=== PATIENT | female | born 1985 | race Hispanic/Latino ===

== ENCOUNTER 2018-10-17 00:16 | Emergency (ER) | payer SELFPAY ==
[2018-10-17 01:12] LABS: BASOPHILS % (AUTO) 0.5 % (0.0-5.0); EOSINOPHILS % (AUTO) 1.3 % (0.0-8.0); HEMATOCRIT 33.9 % (36-48); LYMPHOCYTES % (AUTO) 30.3 % (21.0-51.0); MEAN CORPUSCULAR HEMOGLOBIN 25.3 pg (27.0-33.0); MEAN CORPUSCULAR HGB CONC 31.5 g/dL (32.0-36.0); MEAN CORPUSCULAR VOLUME 80.3 fL (79-99); MONOCYTES % (AUTO) 6.4 % (3.0-13.0); NEUTROPHILS % (AUTO) 61.5 % (40.0-77.0); PLATELET COUNT (AUTO) 376 K/uL (130-400); RED BLOOD CELL COUNT(AUTO) 4.23 MIL/uL (4.00-5.50); RED CELL DISTRIBUTION WIDTH 16.5 % (11.0-15.5)
[2018-10-17 01:13] LABS: APPEARANCE,URINE Cloudy (CLEAR); BILIRUBIN,URINE Negative (NEGATIVE); COLOR,URINE Yellow (YELLOW); GLUCOSE, URINE (UA) Negative (NEGATIVE); KETONES,URINE Negative (NEGATIVE); LEUKOCYTE ESTERASE ,URINE Negative (NEGATIVE); NITRATE,URINE Negative (NEGATIVE); OCCULT BLOOD,URINE Negative (NEGATIVE); PROTEIN,URINE Trace mg/dL (NEGATIVE)
[2018-10-17 01:15] LABS: HCG,QUAL RESULT NEGATIVE (NEGATIVE)
[2018-10-17] MEDS ORDERED: ONDANSETRON HCL 4 MG/2 ML VIAL ONE (01:17)
[2018-10-17] MEDS ORDERED: FAMOTIDINE/PF 20 MG/2 ML VIAL IV ONE (01:18)
[2018-10-17] MEDS ORDERED: SODIUM CHLORIDE 0.9% 1000ML 1,000 ML IV ONE (01:19)
[2018-10-17 01:21] LABS: CREATININE 0.8 mg/dL (0.5-1.5); POTASSIUM 3.5 mmol/L (3.5-5.1)
[2018-10-17 01:24] LABS: INR 0.99 (0.85-1.15); PARTIAL THROMBOPLASTIN TIME 28.9 SEC (26.3-35.5); PROTHROMBIN TIME 10.4 SEC (9.6-11.6)
[2018-10-17 01:25] LABS: ALBUMIN 3.6 g/dL (3.5-5.0); BILIRUBIN,TOTAL 0.4 mg/dL (0.2-1.0); TOTAL PROTEIN, SERUM 7.9 g/dL (6.0-8.3)
[2018-10-17 01:48] LABS: BACTERIA,URINE Few /HPF (None Seen); MUCUS,URINE Moderate LPF (None Seen); RBC,URINE 0-1 /HPF (0-1); WBC,URINE 0-1 /HPF (0-1)
== END 2018-10-17 02:22 | disposition home or self-care (01) ==
LOC: EDH 00:16
DX: R10.11 Right upper quadrant pain (principal); R11.2 Nausea with vomiting, unspecified; R19.7 Diarrhea, unspecified; J45.909 Unspecified asthma, uncomplicated
CPT/HCPCS: 36415; 74176; 80053; 81001; 81025; 82550; 83605; 83690; 85025; 85610; 85730; 96361; 96374; 96375; 99285; J2405; J3490; J7030

== ENCOUNTER → 2020-02-18 | Outpatient (CLI) | payer OTHER ==
[2020-02-18 12:32] LABS: BASOPHILS % (AUTO) 0.3 % (0.0-5.0); HEMATOCRIT 38.7 % (36-48); MEAN CORPUSCULAR HEMOGLOBIN 27.3 pg (27.0-33.0); MEAN CORPUSCULAR VOLUME 85.2 fL (79-99); MONOCYTES % (AUTO) 3.8 % (3.0-13.0); NEUTROPHILS % (AUTO) 92.3 % (40.0-77.0); PLATELET COUNT (AUTO) 321 K/uL (130-400); RED BLOOD CELL COUNT(AUTO) 4.54 MIL/uL (4.00-5.50); RED CELL DISTRIBUTION WIDTH 15.2 % (11.0-15.5); WHITE BLOOD COUNT (AUTO) 26.1 K/uL (4.8-10.8)
[2020-02-18 12:46] LABS: HEMOGLOBIN A1C 6.1 % (4.0-6.0)
[2020-02-18 13:00] LABS: ALBUMIN 3.6 g/dL (3.5-5.0); CREATININE 0.9 mg/dL (0.5-1.5); POTASSIUM 3.9 mmol/L (3.5-5.1); THYROID STIMULATING HORMONE 0.96 uIU/mL (0.36-3.74); TOTAL PROTEIN, SERUM 7.9 g/dL (6.0-8.3)
== END | disposition home or self-care (01) ==
LOC: LAB 11:46
PROVIDERS: ATTEND Family Medicine
DX: M79.604 Pain in right leg (principal); L03.90 Cellulitis, unspecified; M79.89 Other specified soft tissue disorders
CPT/HCPCS: 36415; 80053; 80061; 83036; 84443; 85025

== ENCOUNTER → 2020-02-21 | Outpatient (CLI) | payer OTHER | END | disposition home or self-care (01) | LOC: RAH 14:58 | PROVIDERS: ATTEND Family Medicine | DX: L03.115 Cellulitis of right lower limb (principal); M79.604 Pain in right leg; M79.89 Other specified soft tissue disorders | CPT/HCPCS: 93971 ==

== ENCOUNTER → 2020-06-21 | Outpatient (CLI) | payer OTHER ==
[2020-06-21 12:49] LABS: BASOPHILS % (AUTO) 0.7 % (0.0-5.0); EOSINOPHILS % (AUTO) 3.1 % (0.0-8.0); HEMATOCRIT 41.5 % (36-48); LYMPHOCYTES % (AUTO) 24.6 % (21.0-51.0); MEAN CORPUSCULAR HEMOGLOBIN 27.3 pg (27.0-33.0); MEAN CORPUSCULAR HGB CONC 31.8 g/dL (32.0-36.0); MEAN CORPUSCULAR VOLUME 85.7 fL (79-99); MONOCYTES % (AUTO) 5.7 % (3.0-13.0); NEUTROPHILS % (AUTO) 65.5 % (40.0-77.0); PLATELET COUNT (AUTO) 380 K/uL (130-400); RED BLOOD CELL COUNT(AUTO) 4.84 MIL/uL (4.00-5.50); RED CELL DISTRIBUTION WIDTH 13.9 % (11.0-15.5); WHITE BLOOD COUNT (AUTO) 9.9 K/uL (4.8-10.8)
[2020-06-21 12:50] LABS: APPEARANCE,URINE Clear (CLEAR); BILIRUBIN,URINE Negative (NEGATIVE); COLOR,URINE Yellow (YELLOW); GLUCOSE, URINE (UA) Negative (NEGATIVE); KETONES,URINE Negative (NEGATIVE); LEUKOCYTE ESTERASE ,URINE Trace (NEGATIVE); NITRATE,URINE Negative (NEGATIVE); OCCULT BLOOD,URINE Negative (NEGATIVE); PH,URINE 5.5 (5.0-8.0); PROTEIN,URINE POS 1+ mg/dL (NEGATIVE)
[2020-06-21 12:57] LABS: HEMOGLOBIN A1C 6.3 % (4.0-6.0)
[2020-06-21 13:14] LABS: ALBUMIN 3.7 g/dL (3.5-5.0); BILIRUBIN,TOTAL 0.5 mg/dL (0.2-1.0); CREATININE 0.8 mg/dL (0.5-1.5); POTASSIUM 4.3 mmol/L (3.5-5.1); THYROID STIMULATING HORMONE 2.27 uIU/mL (0.36-3.74)
[2020-06-21 13:32] LABS: RBC,URINE 0-1 /HPF (0-1)
[2020-06-21 13:33] LABS: BACTERIA,URINE Few /HPF (None Seen); SQUAMOUS EPITHELIAL CELL,UR Moderate /HPF (0-2)
== END | disposition home or self-care (01) ==
LOC: LAB 12:02
PROVIDERS: ATTEND Family Medicine
DX: Z00.00 Encounter for general adult medical examination without abnormal findings (principal)
CPT/HCPCS: 36415; 80053; 80061; 81001; 82043; 83036; 84443; 85025

== ENCOUNTER 2020-08-07 18:08 | Emergency (ER) | payer OTHER ==
[~2020-08-07] VITALS: Ht 154.9 cm; Wt 113.4 kg
[2020-08-07 19:27] VITALS: BP 128/60
[2020-08-07 19:32] LABS: BASOPHILS % (AUTO) 0.3 % (0.0-5.0); EOSINOPHILS % (AUTO) 0.8 % (0.0-8.0); HEMATOCRIT 39.8 % (36-48); LYMPHOCYTES % (AUTO) 6.7 % (21.0-51.0); MEAN CORPUSCULAR HEMOGLOBIN 28.4 pg (27.0-33.0); MEAN CORPUSCULAR HGB CONC 32.7 g/dL (32.0-36.0); MEAN CORPUSCULAR VOLUME 86.9 fL (79-99); MONOCYTES % (AUTO) 4.2 % (3.0-13.0); NEUTROPHILS % (AUTO) 87.4 % (40.0-77.0); PLATELET COUNT (AUTO) 343 K/uL (130-400); RED BLOOD CELL COUNT(AUTO) 4.58 MIL/uL (4.00-5.50); RED CELL DISTRIBUTION WIDTH 14.5 % (11.0-15.5); WHITE BLOOD COUNT (AUTO) 23.4 K/uL (4.8-10.8)
[2020-08-07 19:43] LABS: CREATININE 0.9 mg/dL (0.5-1.5); POTASSIUM 3.7 mmol/L (3.5-5.1)
[2020-08-07 19:47] LABS: ALBUMIN 3.6 g/dL (3.5-5.0); BILIRUBIN,TOTAL 0.4 mg/dL (0.2-1.0); TOTAL PROTEIN, SERUM 8.2 g/dL (6.0-8.3)
[2020-08-07] MEDS ORDERED: PANTOPRAZOLE 40 MG/VIAL IVP ONE (20:00)
[2020-08-07] MEDS ORDERED: FAMOTIDINE 20MG VIAL IV ONE (20:00)
[2020-08-07] MEDS ORDERED: ONDANSETRON 4MG INJ IVP ONE (20:00)
[2020-08-07] MEDS ORDERED: [UNRECOGNIZED DRUG - OTHER] IV ONE (20:00)
[2020-08-07] MEDS ORDERED: PROCHLORPERAZINE EDISYLATE 10 MG/2 ML VIAL IVP ONE (20:00)
[2020-08-07] MEDS ORDERED: NACL 0.9% 1000ML 1,000 ML IV ONE ×2 (20:00→20:03)
[2020-08-07 21:10] LABS: APPEARANCE,URINE Clear (CLEAR); BILIRUBIN,URINE Negative (NEGATIVE); COLOR,URINE Yellow (YELLOW); GLUCOSE, URINE (UA) Negative (NEGATIVE); KETONES,URINE Negative (NEGATIVE); LEUKOCYTE ESTERASE ,URINE Negative (NEGATIVE); NITRATE,URINE Negative (NEGATIVE); OCCULT BLOOD,URINE Large (NEGATIVE); PH,URINE 5.5 (5.0-8.0); PROTEIN,URINE Trace mg/dL (NEGATIVE)
[2020-08-07 21:12] LABS: HCG,QUAL RESULT NEGATIVE (NEGATIVE)
[2020-08-07 21:15] LABS: WBC,URINE 0-1 /HPF (0-1)
[2020-08-07 21:16] LABS: BACTERIA,URINE Rare /HPF (None Seen); RBC,URINE 26-50 /HPF (0-1); SQUAMOUS EPITHELIAL CELL,UR Rare /HPF (0-2)
[2020-08-07] MEDS ORDERED: IOHEXOL 350 MG/ML 100ML INFUS..BTL IV ONE (21:29)
[2020-08-07 22:39] VITALS: BP 133/88
[2020-08-07 23:37] LABS: BASOPHILS % (AUTO) 0.3 % (0.0-5.0); EOSINOPHILS % (AUTO) 0.8 % (0.0-8.0); HEMATOCRIT 36.1 % (36-48); LYMPHOCYTES % (AUTO) 10.3 % (21.0-51.0); MEAN CORPUSCULAR HEMOGLOBIN 27.8 pg (27.0-33.0); MEAN CORPUSCULAR HGB CONC 32.1 g/dL (32.0-36.0); MEAN CORPUSCULAR VOLUME 86.6 fL (79-99); NEUTROPHILS % (AUTO) 84.1 % (40.0-77.0); PLATELET COUNT (AUTO) 307 K/uL (130-400); RED BLOOD CELL COUNT(AUTO) 4.17 MIL/uL (4.00-5.50); RED CELL DISTRIBUTION WIDTH 14.5 % (11.0-15.5); WHITE BLOOD COUNT (AUTO) 21.6 K/uL (4.8-10.8)
[2020-08-07] MEDS ORDERED: KETOROLAC 30MG VIAL (30MG/ML) IV SCH (23:45)
[2020-08-07] MEDS ORDERED: PANT40TA PO (23:50)
[2020-08-07] MEDS ORDERED: METO10TA41 PO (23:50)
[2020-08-07] MEDS ORDERED: ONDA4TAB10 PO (23:50)
[2020-08-07] MEDS ORDERED: DICY20TA2 PO (23:50)
== END 2020-08-08 00:35 | disposition home or self-care (01) ==
LOC: EDH 18:08
DX: K29.70 Gastritis, unspecified, without bleeding (principal); E86.0 Dehydration; D72.829 Elevated white blood cell count, unspecified; R11.10 Vomiting, unspecified; Z79.899 Other long term (current) drug therapy
CPT/HCPCS: 36415; 74177; 80053; 81001; 81025; 83690; 85025 ×2; 96361; 96374; 96375 ×2; 99285; C9113; J0780; J1885; J2405; J3490; J7030; Q9967

== ENCOUNTER 2020-10-05 01:37 | Emergency (ER) | payer OTHER ==
[~2020-10-05] VITALS: Ht 154.9 cm; Wt 113.4 kg
[~2020-10-05 01:37] MED LIST: DICY20TA2 PO; METO10TA41 PO; ONDA4TAB10 PO; PANT40TA PO
[2020-10-05 03:05] VITALS: BP 134/68
[2020-10-05 03:06] VITALS: BP 134/68
[2020-10-05] MEDS ORDERED: TETANUS/DIPHTHERIA TOXOID [ADULT] 0.5 ML VIAL IM ONE (06:00)
[2020-10-05] MEDS ORDERED: CIPR-278 PO (06:05)
== END 2020-10-05 06:36 | disposition home or self-care (01) ==
LOC: EDH 01:37
DX: S91.332A Puncture wound without foreign body, left foot, initial encounter (principal); J45.909 Unspecified asthma, uncomplicated; Z79.899 Other long term (current) drug therapy; W45.0XXA Nail entering through skin, initial encounter; Y93.01 Activity, walking, marching and hiking; Y92.89 Other specified places as the place of occurrence of the external cause; Y99.8 Other external cause status
CPT/HCPCS: 73630; 90471; 90714

== ENCOUNTER → 2021-08-06 | Outpatient (CLI) | payer OTHER ==
[~2021-08-06] MED LIST changes: +CIPR-278 PO
[2021-08-06 08:03] LABS: BASOPHILS % (AUTO) 0.5 % (0.0-5.0); EOSINOPHILS % (AUTO) 0.7 % (0.0-8.0); HEMATOCRIT 39.4 % (36-48); LYMPHOCYTES % (AUTO) 27.6 % (21.0-51.0); MEAN CORPUSCULAR HEMOGLOBIN 28.8 pg (27.0-33.0); MEAN CORPUSCULAR HGB CONC 33.8 g/dL (32.0-36.0); MEAN CORPUSCULAR VOLUME 85.3 fL (79-99); MONOCYTES % (AUTO) 6.5 % (3.0-13.0); NEUTROPHILS % (AUTO) 64.2 % (40.0-77.0); PLATELET COUNT (AUTO) 338 K/uL (130-400); RED BLOOD CELL COUNT(AUTO) 4.62 MIL/uL (4.00-5.50); RED CELL DISTRIBUTION WIDTH 14.6 % (11.0-15.5); WHITE BLOOD COUNT (AUTO) 15.3 K/uL (4.8-10.8)
[2021-08-06 08:13] LABS: HEMOGLOBIN A1C 7.5 % (4.0-6.0)
[2021-08-06 08:47] LABS: ALBUMIN 3.3 g/dL (3.5-5.0); BILIRUBIN,TOTAL 0.2 mg/dL (0.2-1.0); POTASSIUM 3.8 mmol/L (3.5-5.1); THYROID STIMULATING HORMONE 3.84 uIU/mL (0.36-3.74); TOTAL PROTEIN, SERUM 7.1 g/dL (6.0-8.3); URIC ACID 5.2 mg/dL (2.6-7.2)
== END | disposition home or self-care (01) ==
LOC: LAB 07:52
PROVIDERS: ATTEND Family Medicine
DX: M25.473 Effusion, unspecified ankle (principal); Z68.43 Body mass index [BMI] 50.0-59.9, adult; E66.01 Morbid (severe) obesity due to excess calories; Z83.3 Family history of diabetes mellitus
CPT/HCPCS: 36415; 80053; 80061; 83036; 84443; 84550; 85025

== ENCOUNTER → 2021-11-13 | Outpatient (CLI) | payer OTHER ==
[2021-11-13 08:18] LABS: APPEARANCE,URINE CLEAR (CLEAR); BILIRUBIN,URINE MODERATE mg/dL (NEGATIVE); COLOR,URINE YELLOW (YELLOW); GLUCOSE, URINE (UA) NEGATIVE (NEGATIVE); KETONES,URINE >=80 mg/dL (NEGATIVE); LEUKOCYTE ESTERASE ,URINE NEGATIVE Leu/uL (NEGATIVE); NITRATE,URINE NEGATIVE (NEGATIVE); OCCULT BLOOD,URINE NEGATIVE (NEGATIVE); PROTEIN,URINE TRACE mg/dL (NEGATIVE); UROBILINOGEN,URINE 0.2 mg/dL (0.2-1.0)
[2021-11-13 08:20] LABS: BASOPHILS % (AUTO) 0.6 % (0.0-5.0); EOSINOPHILS % (AUTO) 1.6 % (0.0-8.0); HEMATOCRIT 41.1 % (36-48); LYMPHOCYTES % (AUTO) 21.8 % (21.0-51.0); MEAN CORPUSCULAR HEMOGLOBIN 27.9 pg (27.0-33.0); MEAN CORPUSCULAR HGB CONC 32.4 g/dL (32.0-36.0); MEAN CORPUSCULAR VOLUME 86.2 fL (79-99); MONOCYTES % (AUTO) 5.8 % (3.0-13.0); NEUTROPHILS % (AUTO) 69.8 % (40.0-77.0); PLATELET COUNT (AUTO) 396 K/uL (130-400); RED BLOOD CELL COUNT(AUTO) 4.77 MIL/uL (4.00-5.50); RED CELL DISTRIBUTION WIDTH 14.1 % (11.0-15.5); WHITE BLOOD COUNT (AUTO) 11.5 K/uL (4.8-10.8)
[2021-11-13 08:34] LABS: HEMOGLOBIN A1C 9.5 % (4.0-6.0)
[2021-11-13 08:35] LABS: BACTERIA,URINE None Seen /HPF (None Seen); RBC,URINE R /HPF (0-1); SQUAMOUS EPITHELIAL CELL,UR Rare /HPF (0-2); WBC,URINE R /HPF (0-1)
[2021-11-13 08:43] LABS: ALBUMIN 3.5 g/dL (3.5-5.0); CREATININE 0.8 mg/dL (0.5-1.5); POTASSIUM 3.3 mmol/L (3.5-5.1); THYROID STIMULATING HORMONE 0.97 uIU/mL (0.36-3.74); TOTAL PROTEIN, SERUM 7.9 g/dL (6.0-8.3)
== END | disposition home or self-care (01) ==
LOC: LAB 07:29
PROVIDERS: ATTEND Family Medicine
DX: R51.9 Headache, unspecified (principal); H57.11 Ocular pain, right eye; Z82.49 Family history of ischemic heart disease and other diseases of the circulatory system; Z68.43 Body mass index [BMI] 50.0-59.9, adult
CPT/HCPCS: 36415; 80053; 80061; 81001; 82150; 83036; 83690; 84439; 84443; 84481; 85025

== ENCOUNTER → 2022-05-24 | Outpatient (CLI) | payer OTHER ==
[2022-05-24 11:08] LABS: BASOPHILS % (AUTO) 0.6 % (0.0-5.0); EOSINOPHILS % (AUTO) 1.3 % (0.0-8.0); HEMATOCRIT 40.2 % (36-48); LYMPHOCYTES % (AUTO) 30.3 % (21.0-51.0); MEAN CORPUSCULAR HEMOGLOBIN 29.5 pg (27.0-33.0); MEAN CORPUSCULAR HGB CONC 32.3 g/dL (32.0-36.0); MEAN CORPUSCULAR VOLUME 91.4 fL (79-99); MONOCYTES % (AUTO) 5.8 % (3.0-13.0); NEUTROPHILS % (AUTO) 61.9 % (40.0-77.0); PLATELET COUNT (AUTO) 305 K/uL (130-400); RED CELL DISTRIBUTION WIDTH 13.6 % (11.0-15.5); WHITE BLOOD COUNT (AUTO) 6.9 K/uL (4.8-10.8)
[2022-05-24 11:13] LABS: HEMOGLOBIN A1C 5.2 % (4.0-6.0)
[2022-05-24 11:23] LABS: ALBUMIN 3.6 g/dL (3.5-5.0); CREATININE 0.6 mg/dL (0.5-1.5); POTASSIUM 3.8 mmol/L (3.5-5.1); THYROID STIMULATING HORMONE 0.86 uIU/mL (0.36-3.74); TOTAL PROTEIN, SERUM 7.2 g/dL (6.0-8.3)
== END | disposition home or self-care (01) ==
LOC: LAB 10:11
PROVIDERS: ATTEND Family Medicine
DX: Z76.0 Encounter for issue of repeat prescription (principal); E11.9 Type 2 diabetes mellitus without complications; Z83.3 Family history of diabetes mellitus; Z82.49 Family history of ischemic heart disease and other diseases of the circulatory system
CPT/HCPCS: 36415; 80053; 80061; 82043; 82306; 83036; 84443; 85025

== ENCOUNTER 2022-06-30 21:50 | Emergency (ER) | payer OTHER ==
[~2022-06-30] VITALS: Ht 154.9 cm; Wt 80.3 kg
[2022-06-30] MEDS ORDERED: CLINDAMYCIN IVPB 600MG/50ML 50 ML IV SCH (22:30)
[2022-06-30 22:48] LABS: BASOPHILS % (AUTO) 0.5 % (0.0-5.0); EOSINOPHILS % (AUTO) 0.9 % (0.0-8.0); LYMPHOCYTES % (AUTO) 39.6 % (21.0-51.0); MEAN CORPUSCULAR HEMOGLOBIN 30.3 pg (27.0-33.0); MEAN CORPUSCULAR HGB CONC 33.9 g/dL (32.0-36.0); MEAN CORPUSCULAR VOLUME 89.5 fL (79-99); MONOCYTES % (AUTO) 5.5 % (3.0-13.0); NEUTROPHILS % (AUTO) 53.3 % (40.0-77.0); PLATELET COUNT (AUTO) 308 K/uL (130-400); RED BLOOD CELL COUNT(AUTO) 4.58 MIL/uL (4.00-5.50); RED CELL DISTRIBUTION WIDTH 13.6 % (11.0-15.5); WHITE BLOOD COUNT (AUTO) 9.9 K/uL (4.8-10.8)
[2022-06-30] MEDS ORDERED: CLIN-141 PO (22:57)
[2022-06-30 23:00] LABS: CREATININE 0.6 mg/dL (0.5-1.5); POTASSIUM 3.7 mmol/L (3.5-5.1)
[2022-06-30 23:05] LABS: ALBUMIN 3.9 g/dL (3.5-5.0); TOTAL PROTEIN, SERUM 7.6 g/dL (6.0-8.3)
[2022-07-01 00:16] VITALS: BP 118/68
== END 2022-07-01 00:19 | disposition home or self-care (01) ==
LOC: EDH 21:50
DX: S61.442A Puncture wound with foreign body of left hand, initial encounter (principal); L03.114 Cellulitis of left upper limb; Z79.899 Other long term (current) drug therapy; X58.XXXA Exposure to other specified factors, initial encounter; Y93.89 Activity, other specified; Y92.89 Other specified places as the place of occurrence of the external cause; Y99.8 Other external cause status
CPT/HCPCS: 99284; 96365; 80053; 85025; 36415; 73130; J3490

== ENCOUNTER → 2022-09-12 | Outpatient (CLI) | payer OTHER ==
[~2022-09-12] MED LIST changes: +CLIN-141 PO
[2022-09-12 10:45] LABS: BASOPHILS % (AUTO) 0.8 % (0.0-5.0); EOSINOPHILS % (AUTO) 2.9 % (0.0-8.0); HEMATOCRIT 41.9 % (36-48); MEAN CORPUSCULAR HEMOGLOBIN 31.2 pg (27.0-33.0); MEAN CORPUSCULAR HGB CONC 32.7 g/dL (32.0-36.0); MEAN CORPUSCULAR VOLUME 95.4 fL (79-99); MONOCYTES % (AUTO) 5.2 % (3.0-13.0); NEUTROPHILS % (AUTO) 68.7 % (40.0-77.0); PLATELET COUNT (AUTO) 273 K/uL (130-400); RED BLOOD CELL COUNT(AUTO) 4.39 MIL/uL (4.00-5.50); RED CELL DISTRIBUTION WIDTH 13.2 % (11.0-15.5); WHITE BLOOD COUNT (AUTO) 7.4 K/uL (4.8-10.8)
[2022-09-12 10:48] LABS: APPEARANCE,URINE CLEAR (CLEAR); BILIRUBIN,URINE NEGATIVE (NEGATIVE); COLOR,URINE LIGHT-YELLOW (YELLOW); GLUCOSE, URINE (UA) NEGATIVE (NEGATIVE); KETONES,URINE NEGATIVE (NEGATIVE); LEUKOCYTE ESTERASE ,URINE 250 Leu/uL (NEGATIVE); NITRATE,URINE NEGATIVE (NEGATIVE); OCCULT BLOOD,URINE NEGATIVE (NEGATIVE); PH,URINE 6.5 (5.0-8.0); PROTEIN,URINE NEGATIVE (NEGATIVE); UROBILINOGEN,URINE 0.2 mg/dL (0.2-1.0)
[2022-09-12 10:53] LABS: HEMOGLOBIN A1C 4.8 % (4.0-6.0)
[2022-09-12 10:55] LABS: MUCUS,URINE RARE LPF (None Seen); SQUAMOUS EPITHELIAL CELL,UR FEW /HPF (0-2)
[2022-09-12 11:10] LABS: ALBUMIN 3.4 g/dL (3.5-5.0); CREATININE 0.6 mg/dL (0.5-1.5); POTASSIUM 3.7 mmol/L (3.5-5.1); THYROID STIMULATING HORMONE 0.67 uIU/mL (0.36-3.74); TOTAL PROTEIN, SERUM 6.9 g/dL (6.0-8.3)
== END | disposition home or self-care (01) ==
LOC: LAB 09:37
PROVIDERS: ATTEND Family Medicine
DX: E11.65 Type 2 diabetes mellitus with hyperglycemia (principal); R10.9 Unspecified abdominal pain
CPT/HCPCS: 36415; 80053; 80061; 81001; 82043; 82150; 82570; 83036; 83690; 84443; 85025; 87088

== ENCOUNTER → 2022-09-20 | Outpatient (CLI) | payer OTHER | END | disposition home or self-care (01) | LOC: RAH 09:38 | PROVIDERS: ATTEND Family Medicine | DX: K76.0 Fatty (change of) liver, not elsewhere classified (principal); R10.9 Unspecified abdominal pain; R16.0 Hepatomegaly, not elsewhere classified | CPT/HCPCS: 76700 ==

== ENCOUNTER 2022-10-29 09:16 | Day surgery (SDC) | payer OTHER ==
[~2022-10-29] VITALS: Ht 154.9 cm; Wt 78.5 kg
[~2022-10-29 09:16] MED LIST changes: +BUDE10.7 IH; +CETI-89 PO; -CIPR-278 PO; -CLIN-141 PO; -DICY20TA2 PO; +LISI2.5T13 PO; -METO10TA41 PO; -ONDA4TAB10 PO; -PANT40TA PO; +PRAV20TA4 PO; +TIRZ5PEN SQ
[2022-10-29 11:08] VITALS: BP 124/77; PULSE 70; RESP 16
[2022-10-29] MEDS ORDERED: PROPOFOL 10 MG/ML 20ML VIAL IV ONE ×2 (13:14→13:15)
== END 2022-10-29 14:05 ==
LOC: ENDO 09:16 → DAH 09:16 → ENDO 14:05
PROVIDERS: ATTEND Internal Medicine Gastroenterology
DX: R10.12 Left upper quadrant pain (principal); K29.70 Gastritis, unspecified, without bleeding; B96.81 Helicobacter pylori [H. pylori] as the cause of diseases classified elsewhere; K31.89 Other diseases of stomach and duodenum; E11.9 Type 2 diabetes mellitus without complications; E78.00 Pure hypercholesterolemia, unspecified; Z79.899 Other long term (current) drug therapy; Z72.89 Other problems related to lifestyle; Z98.890 Other specified postprocedural states
CPT/HCPCS: 82948; 81025; 43239; J2704 ×2; A4620; A4215 ×2; A7002; A4222; A4221; A4663; J7030; A4606; J3490

== ENCOUNTER → 2023-01-01 | Outpatient (CLI) | payer OTHER | END | disposition home or self-care (01) | LOC: LAB 12-31 12:20 | PROVIDERS: ATTEND Internal Medicine Gastroenterology | DX: R10.12 Left upper quadrant pain (principal); B96.81 Helicobacter pylori [H. pylori] as the cause of diseases classified elsewhere | CPT/HCPCS: 83013 ==

== ENCOUNTER 2023-01-13 19:34 | Inpatient (IN) | payer OTHER ==
[~2023-01-13] VITALS: Ht 154.9 cm; Wt 84.1 kg
[2023-01-13 19:59] VITALS: TEMP 100
[2023-01-13] MEDS ORDERED: ACETAMINOPHEN 500 MG TABLET PO ONE (20:00)
[2023-01-13] MEDS ORDERED: 0.9%NACL 1000ML 1,000 ML IV ONE (22:00)
[2023-01-13] MEDS ORDERED: CEFTRIAXONE 1G VIAL IVPB ONE (22:00)
[2023-01-13 22:12] LABS: BASOPHILS # (AUTO) 0.08 K/uL (0.00-0.20); BASOPHILS % (AUTO) 0.5 % (0.0-5.0); EOSINOPHILS # (AUTO) 0.14 K/uL (0.00-0.70); EOSINOPHILS % (AUTO) 0.9 % (0.0-8.0); HEMATOCRIT 36.2 % (36-48); IMMATURE GRANULOCYTE ABSOLUTE 0.07 K/uL (0-1); LYMPHOCYTES # (AUTO) 2.2 K/uL (1.0-4.8); LYMPHOCYTES % (AUTO) 13.9 % (21.0-51.0); MEAN CORPUSCULAR HGB CONC 33.7 g/dL (32.0-36.0); MONOCYTES # (AUTO) 1.2 K/uL (0.1-1.0); MONOCYTES % (AUTO) 7.4 % (3.0-13.0); NEUTROPHILS # (AUTO) 12.4 K/uL (1.8-7.7); NEUTROPHILS % (AUTO) 76.9 % (40.0-77.0); PLATELET COUNT (AUTO) 291 K/uL (130-400); RED BLOOD CELL COUNT(AUTO) 3.81 MIL/uL (4.00-5.50); WHITE BLOOD COUNT (AUTO) 16.1 K/uL (4.8-10.8)
[2023-01-13 22:13] LABS: ADD UA MICROSCOPIC YES; APPEARANCE,URINE CLEAR (CLEAR); BILIRUBIN,URINE NEGATIVE (NEGATIVE); COLOR,URINE YELLOW (YELLOW); GLUCOSE, URINE (UA) NEGATIVE (NEGATIVE); KETONES,URINE NEGATIVE (NEGATIVE); LEUKOCYTE ESTERASE ,URINE NEGATIVE Leu/uL (NEGATIVE); NITRATE,URINE NEGATIVE (NEGATIVE); OCCULT BLOOD,URINE NEGATIVE (NEGATIVE); PH,URINE 5.5 (5.0-8.0); PROTEIN,URINE 10 mg/dL (NEGATIVE); UROBILINOGEN,URINE 0.2 mg/dL (0.2-1.0)
[2023-01-13 22:15] LABS: BACTERIA,URINE RARE /HPF (None Seen); RBC,URINE 0-1 /HPF (0-1); SQUAMOUS EPITHELIAL CELL,UR FEW /HPF (0-2); YEAST,URINE BUDDING RARE /HPF (None Seen)
[2023-01-13 22:16] LABS: HCG,QUALITATIVE URINE NEGATIVE (NEGATIVE)
[2023-01-13 22:38] LABS: CREATININE 0.7 mg/dL (0.5-1.5); POTASSIUM 3.6 mmol/L (3.5-5.1)
[2023-01-13] MEDS ORDERED: IOHEXOL 350 MG/ML 100ML INFUS..BTL IV ONE (22:41)
[2023-01-14] VITALS (26 sets, daily range): BP systolic 90–120; BP diastolic 48–78; PULSE 69–93; RESP 14–18; O2SAT 99
[2023-01-14] MEDS ORDERED: PRAV20TA4 PO (00:33)
[2023-01-14] MEDS ORDERED: POLY17PO4 PO (00:33)
[2023-01-14] MEDS ORDERED: CETI-89 PO (00:33)
[2023-01-14] MEDS ORDERED: LISI2.5T13 PO (00:33)
[2023-01-14] MEDS ORDERED: TIRZ5PEN SQ (00:33)
[2023-01-14] MEDS ORDERED: MORPHINE 4 MG SYG IV PRN (01:30)
[2023-01-14] MEDS ORDERED: ACETAMINOPHEN 650 MG SUPPOSITORY RC PRN (01:30)
[2023-01-14] MEDS ORDERED: POTASSIUM CHLORIDE 20MEQ/100ML 100 ML IV PRN ×2 (01:30)
[2023-01-14] MEDS ORDERED: MAGNESIUM 2GM PREMIX 50ML 50 ML IV PRN (01:30)
[2023-01-14] MEDS ORDERED: KCL 20 MEQ ERTAB PO PRN (01:30)
[2023-01-14] MEDS ORDERED: VANCOMYCIN PROTOCOL PER PHARMACY IV PRN (01:30)
[2023-01-14] MEDS ORDERED: MORPHINE 2 MG SYG IV PRN (01:30)
[2023-01-14] MEDS ORDERED: VANCOMYCIN 1G/250ML KIT 250 ML IV ONE ×2 (01:30→09:26)
[2023-01-14] MEDS ORDERED: POTASSIUM CHLORIDE 10% ELIXIR 20 MEQ/15 ML UDCUP PO PRN (01:30)
[2023-01-14] MEDS ORDERED: ONDANSETRON 4MG INJ IV PRN (01:30)
[2023-01-14] MEDS: LACTATED RINGERS 1000ML 1,000 ML IV SCH ×2 (01:39→14:50)
[2023-01-14 01:43] LABS: BASOPHILS # (AUTO) 0.05 K/uL (0.00-0.20); BASOPHILS % (AUTO) 0.3 % (0.0-5.0); EOSINOPHILS # (AUTO) 0.13 K/uL (0.00-0.70); EOSINOPHILS % (AUTO) 0.9 % (0.0-8.0); HEMATOCRIT 37.9 % (36-48); IMMATURE GRANULOCYTE ABSOLUTE 0.05 K/uL (0-1); LYMPHOCYTES # (AUTO) 2.2 K/uL (1.0-4.8); LYMPHOCYTES % (AUTO) 15.1 % (21.0-51.0); MEAN CORPUSCULAR HEMOGLOBIN 31.7 pg (27.0-33.0); MEAN CORPUSCULAR VOLUME 96.2 fL (79-99); MONOCYTES # (AUTO) 1.1 K/uL (0.1-1.0); MONOCYTES % (AUTO) 7.5 % (3.0-13.0); NEUTROPHILS # (AUTO) 11.1 K/uL (1.8-7.7); NEUTROPHILS % (AUTO) 75.9 % (40.0-77.0); PLATELET COUNT (AUTO) 280 K/uL (130-400); RED BLOOD CELL COUNT(AUTO) 3.94 MIL/uL (4.00-5.50); WHITE BLOOD COUNT (AUTO) 14.6 K/uL (4.8-10.8)
[2023-01-14 01:51] LABS: CREATININE 0.6 mg/dL (0.5-1.5); MAGNESIUM 1.9 mg/dL (1.80-2.40); PHOSPHORUS 3.2 mg/dL (2.5-4.9); POTASSIUM 3.7 mmol/L (3.5-5.1)
[2023-01-14] MEDS ORDERED: CHOL-4 PO (01:53)
[2023-01-14 01:54] LABS: INR 1.01 (0.85-1.15); PROTHROMBIN TIME 11.7 SEC (9.6-11.6)
[2023-01-14 02:02] LABS: HEMOGLOBIN A1C 4.8 % (4.0-6.0)
[2023-01-14] MEDS: ZOSYN 3.375GM+NS 50ML 50 ML IV SCH ×3 (05:38→20:05)
[2023-01-14] MEDS: INSULIN HUMULIN R 100 UNIT/ML 3ML SQ SCH ×4 (06:46→19:56)
[2023-01-14] MEDS ORDERED: 0.9%NACL 1000ML 1,000 ML IV ONE (09:06)
[2023-01-14] MEDS: VANCOMYCIN 1G/250ML KIT 250 ML IV SCH ×2 (09:33→17:36)
[2023-01-14] MEDS ORDERED: MIDAZOLAM HCL 1 MG/ML 2ML VIAL ONE (10:08)
[2023-01-14] MEDS ORDERED: PROPOFOL 10 MG/ML 20ML VIAL IV ONE (10:08)
[2023-01-14] MEDS ORDERED: ROCURONIUM 10MG/1ML SYR 10 MG/ML ML ONE (10:09)
[2023-01-14] MEDS ORDERED: FENTANYL CITRATE PF 50 MCG/1 ML 2ML VIAL ONE ×2 (10:10→10:33)
[2023-01-14] MEDS ORDERED: LIDOCAINE 2%-EPI 1:200,000 20 ML VIAL IJ ONE ×2 (10:40→10:44)
[2023-01-14] MEDS: FAMOTIDINE 20MG VIAL IV SCH ×2 (13:41→20:04)
[2023-01-14] MEDS: ACETAMINOPHEN 500 MG TABLET PO PRN (16:19)
[2023-01-15] VITALS (7 sets, daily range): BP systolic 84–129; BP diastolic 46–71; PULSE 59–96; RESP 16–19; O2SAT 100
[2023-01-15] MEDS: VANCOMYCIN 1G/250ML KIT 250 ML IV SCH ×3 (00:50→17:59)
[2023-01-15] MEDS: ACETAMINOPHEN 500 MG TABLET PO PRN ×3 (00:56→22:11)
[2023-01-15] MEDS: LACTATED RINGERS 1000ML 1,000 ML IV SCH (04:10)
[2023-01-15] MEDS: ZOSYN 3.375GM+NS 50ML 50 ML IV SCH ×3 (04:56→21:39)
[2023-01-15] MEDS: INSULIN HUMULIN R 100 UNIT/ML 3ML SQ SCH ×4 (06:00→21:00)
[2023-01-15] MEDS: FAMOTIDINE 20MG VIAL IV SCH ×2 (08:15→21:39)
[2023-01-15] MEDS ORDERED: LORATADINE 10 MG TABLET PO ONE (18:00)
[2023-01-15] MEDS: ATORVASTATIN 10 MG TABLET PO SCH (21:00)
[2023-01-16] MEDS: VANCOMYCIN 1G/250ML KIT 250 ML IV SCH ×2 (00:51→10:06)
[2023-01-16 03:28] VITALS: BP 121/80; PULSE 60; RESP 19
[2023-01-16] MEDS: INSULIN HUMULIN R 100 UNIT/ML 3ML SQ SCH ×4 (05:37→21:00)
[2023-01-16] MEDS: ZOSYN 3.375GM+NS 50ML 50 ML IV SCH ×3 (05:37→22:04)
[2023-01-16 08:00] VITALS: BP 123/73; PULSE 60; RESP 18
[2023-01-16] MEDS ORDERED: CETIRIZINE HCL 20 MG PO SCH (09:00)
[2023-01-16] MEDS ORDERED: NON-FORMULARY MEDICATION 1 EACH (Pravastatin Sodium 20 MG) PO SCH (09:00)
[2023-01-16] MEDS: POLYETHYLENE GLYCOL 3350 17 GM POWD.PACK PO SCH (10:06)
[2023-01-16] MEDS: FAMOTIDINE 20MG VIAL IV SCH ×2 (10:07→22:04)
[2023-01-16] MEDS: LORATADINE 10 MG TABLET PO SCH (10:07)
[2023-01-16] MEDS: LISINOPRIL 2.5 MG TABLET PO SCH (10:07)
[2023-01-16] MEDS: ATORVASTATIN 10 MG TABLET PO SCH (10:10)
[2023-01-16 11:40] VITALS: O2SAT 99
[2023-01-16 12:00] VITALS: BP 121/74; PULSE 63; RESP 18
[2023-01-16 16:00] VITALS: BP 111/66; PULSE 62; RESP 16
[2023-01-16 20:54] VITALS: BP 106/61; PULSE 67; RESP 18
[2023-01-16] MEDS: VANCOMYCIN 1.25 GM/250 ML BAG 250 ML IV SCH (22:04)
[2023-01-17 00:17] VITALS: BP 109/53; PULSE 67; RESP 18
[2023-01-17 01:39] VITALS: O2SAT 96
[2023-01-17 03:53] VITALS: BP 117/78; PULSE 62; RESP 18
[2023-01-17] MEDS: ACETAMINOPHEN 500 MG TABLET PO PRN (05:18)
[2023-01-17] MEDS: ZOSYN 3.375GM+NS 50ML 50 ML IV SCH ×2 (05:18→13:01)
[2023-01-17 07:22] LABS: MEAN CORPUSCULAR HEMOGLOBIN 31.4 pg (27.0-33.0); MEAN CORPUSCULAR HGB CONC 33.6 g/dL (32.0-36.0); MEAN CORPUSCULAR VOLUME 93.5 fL (79-99); RED BLOOD CELL COUNT(AUTO) 3.85 MIL/uL (4.00-5.50); RED CELL DISTRIBUTION WIDTH 11.9 % (11.0-15.5); WHITE BLOOD COUNT (AUTO) 5.6 K/uL (4.8-10.8)
[2023-01-17] MEDS: INSULIN HUMULIN R 100 UNIT/ML 3ML SQ SCH ×2 (07:30→11:30)
[2023-01-17 07:42] LABS: CREATININE 0.6 mg/dL (0.5-1.5); MAGNESIUM 2.1 mg/dL (1.80-2.40); POTASSIUM 3.9 mmol/L (3.5-5.1)
[2023-01-17 08:00] VITALS: BP 117/73; PULSE 64; RESP 18; O2SAT 100
[2023-01-17] MEDS: VANCOMYCIN 1.25 GM/250 ML BAG 250 ML IV SCH (09:15)
[2023-01-17] MEDS: LORATADINE 10 MG TABLET PO SCH (09:16)
[2023-01-17] MEDS: FAMOTIDINE 20MG VIAL IV SCH (09:16)
[2023-01-17] MEDS: POLYETHYLENE GLYCOL 3350 17 GM POWD.PACK PO SCH (09:16)
[2023-01-17] MEDS: LISINOPRIL 2.5 MG TABLET PO SCH (09:18)
[2023-01-17] MEDS: ATORVASTATIN 10 MG TABLET PO SCH (11:25)
[2023-01-17 12:00] VITALS: BP 113/61; PULSE 62; RESP 17
== END 2023-01-17 17:20 | disposition home or self-care (01) | DRG 854 ==
LOC: EDH 19:34 → EDHIP 23:52 → 3DH 01-14 02:21
PROVIDERS: ADMIT Internal Medicine; ATTEND Internal Medicine
PROC: 0K9P0ZZ Drainage of Left Hip Muscle, Open Approach (ICD-10-PCS; principal; 2023-01-14 10:20)
DX: A41.9 Sepsis, unspecified organism (principal); L02.215 Cutaneous abscess of perineum; L03.317 Cellulitis of buttock; L02.31 Cutaneous abscess of buttock; E11.9 Type 2 diabetes mellitus without complications; B96.6 Bacteroides fragilis [B. fragilis] as the cause of diseases classified elsewhere; E27.8 Other specified disorders of adrenal gland; E66.9 Obesity, unspecified; Z83.3 Family history of diabetes mellitus; Z68.35 Body mass index [BMI] 35.0-35.9, adult
CPT/HCPCS: 36415; 74177; 80048; 80202; 81001; 81025; 82948; 83036; 83605; 83735; 84100; 84145; 85025; 85027; 85610; 85730; 86850; 86900; 86901; 87040; 87070; 87076; 87088; 87205; 93005; G0378; J0696; J2250; J2543; J2704; J3010; J3370; J3490; J7030; J7120; Q9967; 3370; A4222; A4223; A6446

== ENCOUNTER → 2023-03-10 | Outpatient (CLI) | payer OTHER ==
[~2023-03-10] MED LIST changes: +CHOL-4 PO; +POLY17PO4 PO
[2023-03-10 11:30] LABS: BASOPHILS # (AUTO) 0.06 K/uL (0.00-0.20); BASOPHILS % (AUTO) 1.2 % (0.0-5.0); EOSINOPHILS # (AUTO) 0.07 K/uL (0.00-0.70); EOSINOPHILS % (AUTO) 1.4 % (0.0-8.0); HEMATOCRIT 40.1 % (36-48); IMMATURE GRANULOCYTE ABSOLUTE 0.01 K/uL (0-1); LYMPHOCYTES # (AUTO) 1.7 K/uL (1.0-4.8); LYMPHOCYTES % (AUTO) 33.2 % (21.0-51.0); MEAN CORPUSCULAR HEMOGLOBIN 30.9 pg (27.0-33.0); MEAN CORPUSCULAR HGB CONC 32.2 g/dL (32.0-36.0); MEAN CORPUSCULAR VOLUME 95.9 fL (79-99); MONOCYTES # (AUTO) 0.4 K/uL (0.1-1.0); MONOCYTES % (AUTO) 8.5 % (3.0-13.0); NEUTROPHILS # (AUTO) 2.8 K/uL (1.8-7.7); NEUTROPHILS % (AUTO) 55.5 % (40.0-77.0); PLATELET COUNT (AUTO) 284 K/uL (130-400); RED BLOOD CELL COUNT(AUTO) 4.18 MIL/uL (4.00-5.50); RED CELL DISTRIBUTION WIDTH 12.9 % (11.0-15.5)
[2023-03-10 13:09] LABS: ALBUMIN 3.5 g/dL (3.5-5.0); BILIRUBIN,TOTAL 0.8 mg/dL (0.2-1.0); CREATININE 0.6 mg/dL (0.5-1.5); POTASSIUM 4.3 mmol/L (3.5-5.1); THYROID STIMULATING HORMONE 1.21 uIU/mL (0.36-3.74); TOTAL PROTEIN, SERUM 7.1 g/dL (6.0-8.3)
== END | disposition home or self-care (01) ==
LOC: LAB 10:10
PROVIDERS: ATTEND Family Medicine
DX: E11.65 Type 2 diabetes mellitus with hyperglycemia (principal); E78.2 Mixed hyperlipidemia
CPT/HCPCS: 36415; 80053; 80061; 83036; 84443; 85025

== ENCOUNTER → 2023-07-10 | Outpatient (CLI) | payer OTHER ==
[2023-07-10 08:27] LABS: BASOPHILS # (AUTO) 0.05 K/uL (0.00-0.20); BASOPHILS % (AUTO) 0.7 % (0.0-5.0); EOSINOPHILS # (AUTO) 0.09 K/uL (0.00-0.70); EOSINOPHILS % (AUTO) 1.3 % (0.0-8.0); HEMATOCRIT 40.8 % (36-48); IMMATURE GRANULOCYTE ABSOLUTE 0.02 K/uL (0-1); LYMPHOCYTES % (AUTO) 29.1 % (21.0-51.0); MEAN CORPUSCULAR HGB CONC 33.6 g/dL (32.0-36.0); MEAN CORPUSCULAR VOLUME 89.3 fL (79-99); MONOCYTES # (AUTO) 0.5 K/uL (0.1-1.0); MONOCYTES % (AUTO) 6.8 % (3.0-13.0); NEUTROPHILS # (AUTO) 4.3 K/uL (1.8-7.7); NEUTROPHILS % (AUTO) 61.8 % (40.0-77.0); PLATELET COUNT (AUTO) 290 K/uL (130-400); RED BLOOD CELL COUNT(AUTO) 4.57 MIL/uL (4.00-5.50); RED CELL DISTRIBUTION WIDTH 13.4 % (11.0-15.5)
[2023-07-10 08:50] LABS: ALBUMIN 3.8 g/dL (3.5-5.0); BILIRUBIN,TOTAL 0.7 mg/dL (0.2-1.0); CREATININE 0.7 mg/dL (0.5-1.0); POTASSIUM 3.3 mmol/L (3.5-5.1); THYROID STIMULATING HORMONE 1.43 uIU/mL (0.36-3.74); TOTAL PROTEIN, SERUM 7.8 g/dL (6.0-8.3)
== END | disposition home or self-care (01) ==
LOC: LAB 07:28
PROVIDERS: ATTEND Family Medicine
DX: E55.9 Vitamin D deficiency, unspecified (principal); E78.2 Mixed hyperlipidemia; E11.65 Type 2 diabetes mellitus with hyperglycemia
CPT/HCPCS: 36415; 80053; 80061; 82043; 82306; 82570; 83036; 84443; 85025

== ENCOUNTER → 2023-08-20 | Outpatient (CLI) | payer OTHER | END | disposition home or self-care (01) | LOC: RAH 08:20 | PROVIDERS: ATTEND Internal Medicine Gastroenterology | DX: R19.02 Left upper quadrant abdominal swelling, mass and lump (principal); R19.01 Right upper quadrant abdominal swelling, mass and lump; R10.12 Left upper quadrant pain | CPT/HCPCS: 76604 ==

== ENCOUNTER 2024-02-05 05:54 | Day surgery (SDC) | payer OTHER ==
[2024-02-02 09:32] VITALS: BP 123/61; PULSE 77; RESP 18; TEMP 97.3
[2024-02-02 09:34] LABS: BASOPHILS # (AUTO) 0.06 K/uL (0.00-0.20); BASOPHILS % (AUTO) 0.8 % (0.0-5.0); EOSINOPHILS # (AUTO) 0.08 K/uL (0.00-0.70); HEMATOCRIT 34.4 % (36-48); IMMATURE GRANULOCYTE ABSOLUTE 0.03 K/uL (0-1); MEAN CORPUSCULAR HEMOGLOBIN 26.8 pg (27.0-33.0); MEAN CORPUSCULAR HGB CONC 30.8 g/dL (32.0-36.0); MEAN CORPUSCULAR VOLUME 86.9 fL (79-99); MONOCYTES # (AUTO) 0.4 K/uL (0.1-1.0); MONOCYTES % (AUTO) 5.2 % (3.0-13.0); NEUTROPHILS # (AUTO) 5.2 K/uL (1.8-7.7); NEUTROPHILS % (AUTO) 66.6 % (40.0-77.0); PLATELET COUNT (AUTO) 333 K/uL (130-400); RED BLOOD CELL COUNT(AUTO) 3.96 MIL/uL (4.00-5.50); RED CELL DISTRIBUTION WIDTH 14.6 % (11.0-15.5); WHITE BLOOD COUNT (AUTO) 7.8 K/uL (4.8-10.8)
[~2024-02-05] VITALS: Ht 154.9 cm; Wt 9.3 kg
[2024-02-05] VITALS (15 sets, daily range): BP systolic 94–105; BP diastolic 42–73; PULSE 65–75; RESP 15–16; TEMP 97–97.7
[~2024-02-05 05:54] MED LIST changes: -BUDE10.7 IH; -CHOL-4 PO; +OMEP20CA12 PO; -POLY17PO4 PO; -TIRZ5PEN SQ; +TIRZ7.5P SQ; +vitamin d PO
[2024-02-05 07:04] LABS: CREATININE 0.7 mg/dL (0.5-1.0); POTASSIUM 3.9 mmol/L (3.5-5.1)
[2024-02-05] MEDS ORDERED: ondanSETRON 4MG INJ ONE (07:15)
[2024-02-05] MEDS ORDERED: MIDAZOLAM HCL 1 MG/ML 2ML VIAL ONE (07:15)
[2024-02-05] MEDS ORDERED: rocuRONium bROMide 10MG/1ML 5ML VL ONE (07:16)
[2024-02-05] MEDS ORDERED: proPOFol 10 MG/ML 20ML VIAL IV ONE ×2 (07:16→09:11)
[2024-02-05] MEDS ORDERED: FENTanyl CITRate PF 50 MCG/1 ML 2ML VIAL ONE ×2 (07:16→09:18)
[2024-02-05] MEDS: BUPIvacaine/EPI/PF 0.5% 30ML VIAL IJ ONE ×2 (07:35→09:00)
[2024-02-05] MEDS ORDERED: BUPIvacaine/PF 0.5% 30ML VIAL ONE ×2 (07:39→10:14)
[2024-02-05] MEDS ORDERED: EPINEPHrine PF 1MG (1:1,000) 1 MG/ML AMP ONE (07:40)
[2024-02-05] MEDS ORDERED: ePHEDrine SULFate 50 MG/ML AMPULE ONE (08:40)
[2024-02-05] MEDS: 0.9%NACL 1000ML 1,000 ML IV ONE (08:59)
[2024-02-05] MEDS: ceFAZolin SODIUM 2 GM VIAL ONE (08:59)
[2024-02-05] MEDS ORDERED: GLYCOPYRROLATE 0.2 MG/ML 5 ML VIAL ONE (09:16)
[2024-02-05] MEDS ORDERED: NEOSTIGMINE METHYLSULFATE 1MG/ML IV ONE (09:18)
[2024-02-05] MEDS ORDERED: ketOROlac 30MG VIAL (30MG/ML) ONE (09:19)
[2024-02-05] MEDS ORDERED: METH-662 PO (09:22)
[2024-02-05] MEDS ORDERED: GABA-529 PO (09:22)
[2024-02-05] MEDS ORDERED: TRAM100T34 PO (09:22)
[2024-02-05] MEDS ORDERED: DOCU-116 PO (09:22)
--- NOTE | 2024-02-05 09:28 | OP ---
Operative Note: DATE OF PROCEDURE: 02/05/24 SURGEON: HAILEE HENNESSY MD GRAIN ELEVATOR AGENT: [IAN Velez] ANESTHESIA: [General endotracheal anesthesia] ANESTHESIOLOGIST/CORRUGATOR OPERATOR: [[facility] anesthesia team] PREOPERATIVE DIAGNOSIS: [Bilateral flank lipomas] POSTOPERATIVE DIAGNOSIS: [Same] SYNOPSIS: [Bilateral flank lipomas causing patient discomfort Excision of bilateral flank lipomas. Excision of the right lipoma was extending down to the muscle layer total size of the right lipoma excised was approximately 4 cm. Excision of the left flank lipoma was down to muscle. Total size of the left lipoma excised was 7 cm All sponges and instruments were accounted for at the end the case Patient tolerated the procedure well, there no complications] PROCEDURE: [Excision of bilateral flank lipomas] ESTIMATED BLOOD LOSS: [Less than 10 cc] INDICATIONS: [Bilateral flank lipomas causing patient discomfort] DESCRIPTION OF PROCEDURE: [On day of surgery patient presented to the hospital. Patient was brought back to operating room. Positioned in the supine position. Preoperative antibiotics were given. Bilateral SCDs were placed. Patient was intubated. Patient then was prepped and draped the usual fashion. Local a nesthetic was instilled into the skin overlying the right flank lipoma. Skin incision was made. Dissection down to and around the lipoma was done electrocautery. The lipoma was removed in total. The lipoma extended down to the muscle layer. Size of lipoma excised was approximately 4 cm. Then the cavity was copiously irrigated. All irrigation was removed. Appropriate hemostasis was observed. Then the incision was closed in subcuticular fashion with layered sutures. Then my attention was turned to the left flank lipoma. Local anesthetic was instilled into the skin overlying the lipoma. Skin incision was made. Dissection down to and around the lipoma was done electrocautery. The lipoma extended down to the muscle layer. The lipoma is excised in total. It measured approximately 8 cm in diameter. And the cavity was copiously irrigated. All irrigation was removed. Appropriate hemostasis was observed. Then the incision was closed in layers with suture. Appropriate dressings were placed. Patient has woken up, transferred to a stretcher, taken to recovery room to recovery. All sponges and instruments were accounted for at the end the case. Patient tolerated the procedure well, there no complications.] HAILEE HENNESSY MD Feb 05, 2024 09:28
[2024-02-05] MEDS: acetaMINOPHEN 100 ML ONE (09:56)
--- NOTE | 2024-02-05 10:28 | NUR ---
DRESSING: DRESSING TO RT LATERAL ABDOMEN AND LEFT FLANK AREA DRY/INTACT WITH NO REDNESS/SWELLING NOTED TO SURROUNDING AREA.
--- NOTE | 2024-02-05 10:50 | NUR ---
DRESSING: DRESSING TO RIGHT LATERAL ABDOMEN AND LEFT FLANK AREA REMAINED DRY/INTACT WITH NO REDNESS/SWELLING TO SITE.
== END 2024-02-05 10:50 | disposition home or self-care (01) ==
LOC: DAH 05:54
PROVIDERS: ATTEND Surgery
DX: D17.1 Benign lipomatous neoplasm of skin and subcutaneous tissue of trunk (principal); L02.31 Cutaneous abscess of buttock; I10 Essential (primary) hypertension; E11.9 Type 2 diabetes mellitus without complications; E78.5 Hyperlipidemia, unspecified; J45.909 Unspecified asthma, uncomplicated; K21.9 Gastro-esophageal reflux disease without esophagitis; E66.01 Morbid (severe) obesity due to excess calories; Z98.890 Other specified postprocedural states; Z79.899 Other long term (current) drug therapy
CPT/HCPCS: 84703; 85025; 36415 ×2; 22901; 22900; 80048; 82948 ×2; 88304; A4663; J3010 ×2; J7030; J3490 ×4; J0171; J2250; J2704 ×2; J2405; J1885; J2710; J0665 ×2; J0690 ×2; A4215; A4222; A4221; A4216; A4223 ×2

== ENCOUNTER → 2024-04-12 | Outpatient (CLI) | payer OTHER ==
[~2024-04-12] MED LIST changes: +DOCU-116 PO; +GABA-529 PO; +METH-662 PO; +TRAM100T34 PO
[2024-04-12 08:21] LABS: BASOPHILS # (AUTO) 0.04 K/uL (0.00-0.20); BASOPHILS % (AUTO) 0.6 % (0.0-5.0); EOSINOPHILS # (AUTO) 0.12 K/uL (0.00-0.70); EOSINOPHILS % (AUTO) 1.7 % (0.0-8.0); HEMATOCRIT 36.8 % (36-48); IMMATURE GRANULOCYTE ABSOLUTE 0.02 K/uL (0-1); LYMPHOCYTES # (AUTO) 1.8 K/uL (1.0-4.8); LYMPHOCYTES % (AUTO) 26.2 % (21.0-51.0); MEAN CORPUSCULAR HEMOGLOBIN 26.2 pg (27.0-33.0); MEAN CORPUSCULAR HGB CONC 31.5 g/dL (32.0-36.0); MEAN CORPUSCULAR VOLUME 83.3 fL (79-99); MONOCYTES # (AUTO) 0.4 K/uL (0.1-1.0); MONOCYTES % (AUTO) 5.9 % (3.0-13.0); NEUTROPHILS # (AUTO) 4.5 K/uL (1.8-7.7); NEUTROPHILS % (AUTO) 65.3 % (40.0-77.0); PLATELET COUNT (AUTO) 337 K/uL (130-400); RED BLOOD CELL COUNT(AUTO) 4.42 MIL/uL (4.00-5.50); RED CELL DISTRIBUTION WIDTH 15.8 % (11.0-15.5); WHITE BLOOD COUNT (AUTO) 6.9 K/uL (4.8-10.8)
[2024-04-12 08:28] LABS: APPEARANCE,URINE CLEAR (CLEAR); BILIRUBIN,URINE NEGATIVE (NEGATIVE); COLOR,URINE YELLOW (YELLOW); GLUCOSE, URINE (UA) NEGATIVE (NEGATIVE); KETONES,URINE NEGATIVE (NEGATIVE); LEUKOCYTE ESTERASE ,URINE NEGATIVE Leu/uL (NEGATIVE); NITRATE,URINE NEGATIVE (NEGATIVE); OCCULT BLOOD,URINE NEGATIVE (NEGATIVE); PH,URINE 5.5 (5.0-8.0); PROTEIN,URINE 20 mg/dL (NEGATIVE); UROBILINOGEN,URINE 0.2 mg/dL (0.2-1.0)
[2024-04-12 08:30] LABS: ADD UA MICROSCOPIC YES
[2024-04-12 08:33] LABS: BACTERIA,URINE RARE /HPF (None Seen); MUCUS,URINE RARE LPF (None Seen); RBC,URINE 0-1 /HPF (0-1); SQUAMOUS EPITHELIAL CELL,UR FEW /HPF (0-2); WBC,URINE 0-1 /HPF (0-1)
[2024-04-12 08:38] LABS: HEMOGLOBIN A1C 5.5 % (4.0-6.0)
[2024-04-12 08:47] LABS: ALBUMIN 3.6 g/dL (3.5-5.0); BILIRUBIN,TOTAL 0.3 mg/dL (0.2-1.0); CREATININE 0.7 mg/dL (0.5-1.0); POTASSIUM 3.8 mmol/L (3.5-5.1); THYROID STIMULATING HORMONE 1.79 uIU/mL (0.36-3.74); TOTAL PROTEIN, SERUM 7.4 g/dL (6.0-8.3)
== END | disposition home or self-care (01) ==
LOC: LAB 07:17
PROVIDERS: ATTEND Nurse Practitioner Family
DX: E11.9 Type 2 diabetes mellitus without complications (principal); E55.9 Vitamin D deficiency, unspecified; L76.82 Other postprocedural complications of skin and subcutaneous tissue
CPT/HCPCS: 36415; 80053; 80061; 81001; 82043; 82570; 83036; 84443; 85025

== ENCOUNTER → 2024-05-03 | Outpatient (CLI) | payer OTHER ==
[2024-05-03 09:31] LABS: BASOPHILS # (AUTO) 0.05 K/uL (0.00-0.20); BASOPHILS % (AUTO) 0.8 % (0.0-5.0); EOSINOPHILS # (AUTO) 0.06 K/uL (0.00-0.70); HEMATOCRIT 36.5 % (36-48); IMMATURE GRANULOCYTE ABSOLUTE 0.01 K/uL (0-1); LYMPHOCYTES # (AUTO) 1.6 K/uL (1.0-4.8); LYMPHOCYTES % (AUTO) 26.6 % (21.0-51.0); MEAN CORPUSCULAR HGB CONC 31.5 g/dL (32.0-36.0); MEAN CORPUSCULAR VOLUME 82.6 fL (79-99); MONOCYTES # (AUTO) 0.3 K/uL (0.1-1.0); MONOCYTES % (AUTO) 5.3 % (3.0-13.0); NEUTROPHILS % (AUTO) 66.1 % (40.0-77.0); PLATELET COUNT (AUTO) 367 K/uL (130-400); RED BLOOD CELL COUNT(AUTO) 4.42 MIL/uL (4.00-5.50); RED CELL DISTRIBUTION WIDTH 16.4 % (11.0-15.5); WHITE BLOOD COUNT (AUTO) 6.1 K/uL (4.8-10.8)
[2024-05-03 09:39] LABS: CREATININE 0.6 mg/dL (0.5-1.0); POTASSIUM 3.9 mmol/L (3.5-5.1)
== END | disposition home or self-care (01) ==
LOC: LAB 07:23
PROVIDERS: ATTEND Urology
DX: N28.9 Disorder of kidney and ureter, unspecified (principal)
CPT/HCPCS: 36415; 80048; 85025

== ENCOUNTER → 2024-05-14 | Outpatient (CLI) | payer OTHER ==
[~2024-05-14] MED LIST changes: +IOHEXOL-350 75 ML VIAL IV ONE
--- NOTE | 2024-05-14 10:48 | HMCIMG ---
Exam Type: CT ABDOMEN/PELVIS W/WO CONTRAS Clinical Information: Disorder of kidney and ureter, unspecified Comparison: None Contrast: 100 cc's Isovue 370 IV, no complications or adverse reactions CT Dose Index (CTDI): 31.60 mGy Dose Length Product (DLP): 1740.80 total mGy-cm Findings: No evidence of nephro or ureterolithiasis is found. No hydronephrosis or ureteral dilatation is seen. The lung bases are clear. The stomach is unremarkable. It shows no wall thickening. No gross ulceration is seen. It is not overly distended. There are no surrounding inflammatory changes. No wall lesions are identified to suggest cancer. The spleen is unremarkable. It is not enlarged. The pancreas shows normal anatomy. It is not fatty replaced. It shows no lesions. The pancreatic duct is not dilated. The gallbladder is unremarkable. It shows no cholelithiasis. The gallbladder wall is normal in thickness. There is no pericholecystic fluid. The is no acute or chronic inflammation noted. The adrenal glands are unremarkable. There is no enlargement. No lesions are noted. Benign fat-containing lesion of the left adrenal gland is seen and the adrenals are otherwise unremarkable. The liver is unremarkable. It shows no focal masses. The appendix is unremarkable. It shows no evidence of inflammation. No appendicolith is seen. The small bowel is unremarkable. There is no evidence of dilatation to suggest obstruction. No evidence of adynamic ileus is seen. There is no small bowel wall thickening to suggest enteritis. The colon is unremarkable. The urinary bladder is unremarkable. There is no wall thickening to suggest tumor or inflammation. There are no intraluminal calculi. There are no diverticula. There is no evidence of chronic bladder outlet obstruction. There is no evidence of urinary bladder distention to suggest urinary retention. Small simple bilateral ovarian cysts are seen. The bony and vascular structures are unremarkable for the patient's age. IMPRESSION: No acute pathology. Chronic changes as noted. This study was performed using dose reduction techniques to include automated exposure control and/or adjustment of the mA and/or kV according to patient size.
== END | disposition home or self-care (01) ==
LOC: RAH 07:52
PROVIDERS: ATTEND Urology
DX: N83.292 Other ovarian cyst, left side (principal); N83.291 Other ovarian cyst, right side; N28.9 Disorder of kidney and ureter, unspecified
CPT/HCPCS: 74178; Q9967

== ENCOUNTER → 2024-05-24 | Outpatient (CLI) | payer OTHER ==
[~2024-05-24] MED LIST changes: -IOHEXOL-350 75 ML VIAL IV ONE
[2024-05-24 09:15] LABS: BASOPHILS # (AUTO) 0.06 K/uL (0.00-0.20); BASOPHILS % (AUTO) 0.9 % (0.0-5.0); EOSINOPHILS # (AUTO) 0.24 K/uL (0.00-0.70); EOSINOPHILS % (AUTO) 3.6 % (0.0-8.0); HEMATOCRIT 34.4 % (36-48); IMMATURE GRANULOCYTE ABSOLUTE 0.01 K/uL (0-1); LYMPHOCYTES # (AUTO) 1.5 K/uL (1.0-4.8); LYMPHOCYTES % (AUTO) 22.2 % (21.0-51.0); MEAN CORPUSCULAR HEMOGLOBIN 26.6 pg (27.0-33.0); MEAN CORPUSCULAR VOLUME 83.3 fL (79-99); MONOCYTES # (AUTO) 0.8 K/uL (0.1-1.0); MONOCYTES % (AUTO) 11.4 % (3.0-13.0); NEUTROPHILS # (AUTO) 4.1 K/uL (1.8-7.7); NEUTROPHILS % (AUTO) 61.8 % (40.0-77.0); PLATELET COUNT (AUTO) 325 K/uL (130-400); RED BLOOD CELL COUNT(AUTO) 4.13 MIL/uL (4.00-5.50); RED CELL DISTRIBUTION WIDTH 17.2 % (11.0-15.5); WHITE BLOOD COUNT (AUTO) 6.7 K/uL (4.8-10.8)
[2024-05-24 09:24] LABS: ALBUMIN 3.5 g/dL (3.5-5.0); BILIRUBIN,TOTAL 0.3 mg/dL (0.2-1.0); CREATININE 0.7 mg/dL (0.5-1.0); POTASSIUM 3.4 mmol/L (3.5-5.1); TOTAL PROTEIN, SERUM 7.4 g/dL (6.0-8.3)
== END | disposition home or self-care (01) ==
LOC: LAB 08:14
PROVIDERS: ATTEND Internal Medicine Gastroenterology
DX: R16.0 Hepatomegaly, not elsewhere classified (principal)
CPT/HCPCS: 36415; 80053; 85025

== ENCOUNTER → 2024-07-19 | Outpatient (CLI) | payer OTHER ==
[2024-07-19 07:37] LABS: BASOPHILS # (AUTO) 0.04 K/uL (0.00-0.20); BASOPHILS % (AUTO) 0.5 % (0.0-5.0); EOSINOPHILS # (AUTO) 0.14 K/uL (0.00-0.70); EOSINOPHILS % (AUTO) 1.9 % (0.0-8.0); HEMATOCRIT 33.4 % (36-48); IMMATURE GRANULOCYTE ABSOLUTE 0.02 K/uL (0-1); LYMPHOCYTES # (AUTO) 1.7 K/uL (1.0-4.8); LYMPHOCYTES % (AUTO) 23.1 % (21.0-51.0); MEAN CORPUSCULAR HEMOGLOBIN 26.6 pg (27.0-33.0); MEAN CORPUSCULAR HGB CONC 30.8 g/dL (32.0-36.0); MEAN CORPUSCULAR VOLUME 86.3 fL (79-99); MONOCYTES # (AUTO) 0.5 K/uL (0.1-1.0); MONOCYTES % (AUTO) 6.6 % (3.0-13.0); NEUTROPHILS # (AUTO) 5.1 K/uL (1.8-7.7); NEUTROPHILS % (AUTO) 67.6 % (40.0-77.0); PLATELET COUNT (AUTO) 359 K/uL (130-400); RED BLOOD CELL COUNT(AUTO) 3.87 MIL/uL (4.00-5.50); RED CELL DISTRIBUTION WIDTH 14.9 % (11.0-15.5); WHITE BLOOD COUNT (AUTO) 7.5 K/uL (4.8-10.8)
[2024-07-19 07:54] LABS: HEMOGLOBIN A1C 5.4 % (4.0-6.0)
[2024-07-19 08:00] LABS: ALBUMIN 3.6 g/dL (3.5-5.0); BILIRUBIN,TOTAL 0.4 mg/dL (0.2-1.0); CREATININE 0.8 mg/dL (0.5-1.0); POTASSIUM 4.5 mmol/L (3.5-5.1); THYROID STIMULATING HORMONE 1.07 uIU/mL (0.36-3.74); TOTAL PROTEIN, SERUM 7.7 g/dL (6.0-8.3)
== END | disposition home or self-care (01) ==
LOC: LAB 07:04
PROVIDERS: ATTEND Nurse Practitioner Family
DX: E11.9 Type 2 diabetes mellitus without complications (principal); E55.9 Vitamin D deficiency, unspecified
CPT/HCPCS: 36415; 80053; 80061; 82043; 82306; 82570; 83036; 84443; 85025

== ENCOUNTER → 2024-09-07 | Outpatient (CLI) | payer OTHER ==
[~2024-09-07] MED LIST changes: -PRAV20TA4 PO; +PRAV20TA59 PO
[2024-09-07 08:17] LABS: IMMATURE GRANULOCYTE ABSOLUTE 0.02 K/uL (0-1); NUCLEATED RED BLOOD CELLS 0.0 % (0.0-0.19); PLATELET COUNT (AUTO) 391 K/uL (130-400); RED BLOOD CELL COUNT(AUTO) 4.12 MIL/uL (4.00-5.50); RED CELL DISTRIBUTION WIDTH 14.7 % (11.0-15.5); WHITE BLOOD COUNT (AUTO) 6.8 K/uL (4.8-10.8)
== END | disposition home or self-care (01) ==
LOC: LAB 07:17
PROVIDERS: ATTEND Nurse Practitioner Family
DX: D64.9 Anemia, unspecified (principal)
CPT/HCPCS: 36415; 85025

== ENCOUNTER 2024-10-15 15:13 | Emergency (ER) | payer OTHER ==
[~2024-10-15] VITALS: Ht 154.9 cm; Wt 89.4 kg
--- NOTE | 2024-10-15 15:24 | ERN ---
ED Note History of Present Illness Stated Complaint: RIGHT EARACHE Chief Complaint: Earache Time Seen by MD: 15:21 Dictation: PATIENT IS A 38-YEAR-OLD FEMALE COMING IN TODAY WITH RIGHT EAR PAIN, MUFFLED HEARING AND YELLOW DRAINAGE ONSET TODAY. SHE STATES SHE HAS HAD THE PAIN IN PRESSURE IN HER RIGHT EAR FOR SEVERAL DAYS GOT WORSE TODAY. SHE HAD ALREADY BEEN ON AMOXICILLIN FROM ANOTHER PROVIDER HOWEVER SHE SAID IT DID NOT HELP AND ACTUALLY MIGHT HAVE MADE IT WORSE. NO FEVER NO CHILLS NO MASTOID TENDERNESS. NO HEADACHE. Allergies: Coded Allergies: No Known Allergies (Unverified Allergy, Unknown, 08/07/20) Home Meds Active Scripts Methocarbamol (Robaxin) 750 Mg Tab, 500 MG PO TID, #9 TAB 0 Refills Prov:HAILEE HENNESSY MD 02/05/24 Gabapentin (Gabapentin) 100 Mg Capsule, 100 MG PO TID, #9 CAP 0 Refills Prov:HAILEE HENNESSY MD 02/05/24 Docusate Sodium (Colace) 100 Mg Capsule, 1 CAP PO BID for 15 Days, #30 CAP 0 Refills Prov:HAILEE HENNESSY MD 02/05/24 Tramadol HCl (Tramadol HCl ER) 100 Mg Tab.er.24h, 50 MG PO Q6HPRN PRN for PAIN, #28 TAB 0 Refills Prov:HAILEE HENNESSY MD 02/05/24 Reported Medications Omeprazole (Omeprazole) 20 Mg Capsule.dr, 1 CAP PO DAILY for 30 Days, #30 CAP 0 Refills 02/02/24 [vitamin d] No Conflict Check, [address] UNIT PO weekly 02/02/24 Tirzepatide (Mounjaro) 7.5 Mg/0.5 Ml Pen.injctr, 7.5 MG SQ weekly 02/02/24 Cetirizine HCl (Zyrtec) 10 Mg Tablet, 20 MG PO DAILY, TAB 01/14/23 Pravastatin Sodium (Pravastatin Sodium) 20 Mg Tablet, 20 MG PO DAILY, TAB 01/14/23 Lisinopril (Lisinopril) 2.5 Mg Tablet, 2.5 MG PO DAILY, TAB 01/14/23 Past Medical History Past Medical History: Asthma, Diabetes-Type II, High Cholesterol Surgical History: Tonsillectomy, Other Surgical History Other: SINUS SX Family History: Negative Social History: Negative, Other History: Not Applicable LMP: Oct 14, 2024 RN Note Reviewed/Agreed w/PFSH: Yes Review of System Dictation CONSTITUTIONAL: NEGATIVE EXCEPT FOR HPI HEAD/FACE: NEGATIVE EXCEPT FOR HPI EENT: NEGATIVE EXCEPT FOR HPI RIGHT EAR PAIN WITH DRAINAGE RESPIRATORY: NEGATIVE EXCEPT FOR HPI GASTROINTESTINAL/ABDOMINAL: NEGATIVE EXCEPT FOR HPI GENITOURINARY: NEGATIVE EXCEPT FOR HPI MUSCULOSKELETAL: NEGATIVE EXCEPT FOR HPI INTEGUMENTARY: NEGATIVE EXCEPT FOR HPI NEUROLOGICAL/PSYCH: NEGATIVE EXCEPT FOR HPI HEMATOLOGIC/LYMPHATIC: NEGATIVE EXCEPT FOR HPI ALL SYSTEMS NEGATIVE, EXCEPT NOTED ABOVE. 13 POINT REVIEW OF SYSTEMS ASSESSED AND ALL NEGATIVE EXCEPT FOR ABOVE. Initial Vital Sign VS Vital Signs Date Time Temp Pulse Resp B/P (MAP) Pulse Ox O2 Delivery O2 Flow Rate FiO2 10/15/24 15:14 97.2 81 17 119/46 99 Room Air 0 Physical Exam Dictation VITAL SIGNS REVIEWED GENERAL APPEARANCE: ALERT, ORIENTED X 3, MODERATE ACUTE DISTRESS, WELL DEVELOPED, NOURISHED. HEAD AND FACE: NON-TRAUMATIC. EYES: PERRL, PINK CONJUNCTIVAS, EYELID NO TRAUMA, ANTERIOR CHAMBER WITH ARCUS SENILIS. EARS: PINNAS INTACT AND NO SIGNS OF TRAUMA UNABLE TO VISUALIZE RIGHT TM. YELLOW OTORRHEA NOTED. NO MASTOID TENDERNESS CULTURE OBTAINED. NOSE: NO DISCHARGE, NO BLEEDING. OROPHARYNX: MOUTH NORMAL, TONGUE PINK, PHARYNX CLEAR,NO ERYTHEMA, TONSILS NO EXUDATES, NO ABSCESSES NOTED, MUCOUS MEMBRANE MOIST NECK: SUPPLE, NON-TENDER, NO THYROMEGALY, NO MASSES, NO JVD, NO BRUITS BREAST:DEFERRED CHEST:NO TENDERNESS, NO CREPITUS, NO PARADOXICAL MOVEMENT, NO RETRACTIONS LUNGS:CLEAR, WELL-VENTILATED, SYMMETRIC, NO RALES, NO WHEEZING, NO RHONCHI, NO STRIDOR, GOOD BREATH SOUNDS BILATERALLY HEART: REGULAR RATE, REGULAR RHYTHM, NO MURMUR, NO GALLOPS VASCULAR: NO PERIPHERAL EDEMA, ABDOMEN: SOFT, POSITIVE BOWEL SOUNDS, NONDISTENDED, NO GUARDING, NONTENDER, NO REBOUND, NO MASSES NO HEPATOMEGALY, NO SPLENOMEGALY, NO DAVIS'S SIGN, NO HERNIAS. RECTAL: DEFERRED GENITAL: DEFERRED NEUROLOGICAL: NORMAL SPEECH, MOTOR FUNCTION INTACT, SENSORY FUNCTION INTACT MUSCULOSKELETAL: NECK NONTENDER, FULL RANGE OF MOTION, BACK NONTENDER, FULL RANGE OF MOTION, EXTREMITIES: NONTENDER, FULL RANGE OF MOTION SKIN: COLOR PINK, DRY, NO TURGOR, NO RASH, NO LACERATIONS, NO ABRASIONS, NO CONTUSIONS. LYMPHATIC: DEFERRED Results (Laboratory/Radiology) Labs Reviewed?: Yes ED Course ED Course Orders Procedure Category Date Status Time Aerobic Culture ROM 10/15/24 In Process 15:22 Ceftriaxone 1g Vial PHA 10/15/24 Complete (Rocephine 1g Inj) 15:30 Ketorolac 60mg/2ml PHA 10/15/24 Complete (Toradol 60mg/2ml) 15:30 Lidocaine Hcl 1% 20ml PHA 10/15/24 Complete Vial (Lidocaine Hc 15:32 Current Medications Medications (Trade) Dose Ordered Sig/Yvonne Route PRN Reason Start Time Stop Time Status Last Admin Dose Admin Ceftriaxone Sodium (ROCEphine 1G INJ) 1 gm ONCE ONCE IM 10/15/24 15:30 10/15/24 15:31 DC 10/15/24 15:36 Ketorolac Tromethamine (toRADol 60MG/ 2ML) 60 mg ONCE ONCE IM 10/15/24 15:30 10/15/24 15:31 DC 10/15/24 15:35 Lidocaine HCl (Lidocaine HCl 1% 20ml Vial) 20 ml STK-MED ONCE .ROUTE 10/15/24 15:32 10/15/24 15:32 DC Vital Signs Date Time Temp Pulse Resp B/P (MAP) Pulse Ox O2 Delivery O2 Flow Rate FiO2 10/15/24 15:14 97.2 81 17 119/46 99 Room Air 0 1625 PATIENT DISCHARGED HOME WITH A AUGMENTIN AND TYLENOL WITH CODEINE. TOLD TAKE DIRECTED UNTIL GONE KEEP RIGHT EAR CLEAN AND DRY. FOLLOW UP WITH HER DOCTOR IN THE NEXT 1-2 DAYS Medical Decision Making MDM Medical discharge making based on empiric treatment for otitis media with effusion. Culture was obtained of right otorrhea Patient given Rocephin 1 g IM and pain management with Toradol. Discharged home with a Augmentin 875 for seven days b.i.d. Tylenol with codeine for severe pain Care for the right ear until cleared by her doctor next week DX & DISP Disposition: Discharge Departure Impression: Primary Impression: Right otitis media with effusion Condition: Stable Scripts Acetaminophen with Codeine (Acetaminophen-Cod #3 Tablet) 300 Mg-30 Mg Tablet 1 TAB PO Q4H PRN for MODERATE TO SEVERE PAIN, #15 TAB 0 Refills Prov: BECKY BIRCH NP 10/15/24 Amoxicillin/Potassium Clav (Amox Tr-K Clv 875-125 mg Tab) 875 Mg-125 Mg Tablet 1 EACH PO BID for 7 Days, #14 TAB 0 Refills Prov: BECKY BIRCH NP 10/15/24 Additional Instructions: Follow-up with primary care provider in 1 to 2 days. Take medications as directed here in the emergency room. Okay to continue home medications unless otherwise discussed during your visit in the emergency room today. Return to your nearest emergency room if symptoms worsen or if there is no improvement. Call [phone] if you need immediate assistance. Take Tylenol or Motrin [id number] as needed and if no contraindications are present. Increase oral hydration. A wound culture or urine culture was ordered here in the e mergency room department please follow-up with primary care provider and advise them to get repeat ports from our facility. If you had any Elia wrap/splints that were applied here, please do not remove them until you see your primary care or specialty. K Keep right ear clean and dry. Stop amoxicillin and take Augmentin as directed until gone. Follow up with your primary care doctor in the next 2-3 days if pain and discharged does not improve. Referrals: KENYATTA MARINELLI (PCP) Time of Disposition: 16:25 I have reviewed the case, and I agree with, Diagnosis and Plan BECKY BIRCH NP Oct 15, 2024 15:24
[2024-10-15] MEDS: LIDOCAINE HCL 1% 20 ML VIAL ONE (15:36)
[2024-10-15] MEDS ORDERED: ACET-2079 PO (16:27)
[2024-10-15] MEDS ORDERED: AMOX1TAB16 PO (16:27)
[2024-10-15 16:50] VITALS: BP 114/50; PULSE 77; RESP 16; TEMP 97.2; O2SAT 97
== END 2024-10-15 17:05 | disposition home or self-care (01) ==
LOC: EDH 15:13
DX: H65.91 Unspecified nonsuppurative otitis media, right ear (principal); E11.9 Type 2 diabetes mellitus without complications; E78.00 Pure hypercholesterolemia, unspecified; J45.909 Unspecified asthma, uncomplicated; Z79.85 Long-term (current) use of injectable non-insulin antidiabetic drugs; Z79.899 Other long term (current) drug therapy; Z90.89 Acquired absence of other organs
CPT/HCPCS: 99284; 87086; 87186; 96372 ×2; 87070; J1885; J0696

== ENCOUNTER → 2024-10-25 | Outpatient (CLI) | payer OTHER ==
[~2024-10-25] MED LIST changes: +ACET-2079 PO; +AMOX1TAB16 PO
[2024-10-25 07:38] LABS: IMMATURE GRANULOCYTE ABSOLUTE 0.02 K/uL (0-1); NUCLEATED RED BLOOD CELLS 0.0 % (0.0-0.19); PLATELET COUNT (AUTO) 374 K/uL (130-400); RED BLOOD CELL COUNT(AUTO) 4.15 MIL/uL (4.00-5.50); RED CELL DISTRIBUTION WIDTH 15.8 % (11.0-15.5); WHITE BLOOD COUNT (AUTO) 6.4 K/uL (4.8-10.8)
[2024-10-25 07:54] LABS: ASPARTATE AMINOTRANSFERASE 16.0 U/L (10-37); CREATININE 0.6 mg/dL (0.5-1.0); GLOMERULAR FILTR. RATE CALC 117.0 mL/min (>90); GLUCOSE,RANDOM 92.0 mg/dL (70-105); SODIUM SERUM 138.0 mmol/L (136-145); TOTAL PROTEIN, SERUM 7.1 g/dL (6.0-8.3); UREA NITROGEN, BLOOD 11.0 mg/dL (7-18)
== END | disposition home or self-care (01) ==
LOC: LAB 07:22
PROVIDERS: ATTEND Internal Medicine Gastroenterology
DX: R16.0 Hepatomegaly, not elsewhere classified (principal)
CPT/HCPCS: 36415; 80053; 85025

== ENCOUNTER → 2024-11-08 | Outpatient (CLI) | payer OTHER ==
[2024-11-08 11:41] LABS: IMMATURE GRANULOCYTE ABSOLUTE 0.02 K/uL (0-1); NUCLEATED RED BLOOD CELLS 0.0 % (0.0-0.19); PLATELET COUNT (AUTO) 403 K/uL (130-400); RED BLOOD CELL COUNT(AUTO) 4.24 MIL/uL (4.00-5.50); RED CELL DISTRIBUTION WIDTH 17.2 % (11.0-15.5); WHITE BLOOD COUNT (AUTO) 8.6 K/uL (4.8-10.8)
[2024-11-08 11:49] LABS: ASPARTATE AMINOTRANSFERASE 14 U/L (10-37); CREATININE 0.5 mg/dL (0.5-1.0); GLOMERULAR FILTR. RATE CALC 122 mL/min (>90); GLUCOSE,RANDOM 83 mg/dL (70-105); LDL DIRECT 85 mg/dL (0-99); SODIUM SERUM 135 mmol/L (136-145); TOTAL PROTEIN, SERUM 7.7 g/dL (6.0-8.3); UREA NITROGEN, BLOOD 12 mg/dL (7-18)
== END | disposition home or self-care (01) ==
LOC: LAB 09:49
PROVIDERS: ATTEND Family Medicine
DX: E11.65 Type 2 diabetes mellitus with hyperglycemia (principal); E55.9 Vitamin D deficiency, unspecified; Z13.29 Encounter for screening for other suspected endocrine disorder
CPT/HCPCS: 36415; 80053; 80061; 82306; 83036; 84443; 85025

== ENCOUNTER → 2025-02-09 | Outpatient (CLI) | payer OTHER ==
[2025-02-09 11:51] LABS: IMMATURE GRANULOCYTE ABSOLUTE 0.04 K/uL (0-1); NUCLEATED RED BLOOD CELLS 0.0 % (0.0-0.19); PLATELET COUNT (AUTO) 364 K/uL (130-400); RED BLOOD CELL COUNT(AUTO) 4.23 MIL/uL (4.00-5.50); RED CELL DISTRIBUTION WIDTH 15.5 % (11.0-15.5); WHITE BLOOD COUNT (AUTO) 8.7 K/uL (4.8-10.8)
[2025-02-09 12:08] LABS: ASPARTATE AMINOTRANSFERASE 13.0 U/L (10-37); CREATININE 0.7 mg/dL (0.5-1.0); GLOMERULAR FILTR. RATE CALC 112.0 mL/min (>90); GLUCOSE,RANDOM 86.0 mg/dL (70-105); LDL DIRECT 113.0 mg/dL (0-99); SODIUM SERUM 136.0 mmol/L (136-145); TOTAL PROTEIN, SERUM 7.5 g/dL (6.0-8.3); UREA NITROGEN, BLOOD 8.0 mg/dL (7-18)
== END | disposition home or self-care (01) ==
LOC: LAB 11:14
PROVIDERS: ATTEND Family Medicine
DX: E11.65 Type 2 diabetes mellitus with hyperglycemia (principal); E55.9 Vitamin D deficiency, unspecified; E78.2 Mixed hyperlipidemia; E11.69 Type 2 diabetes mellitus with other specified complication
CPT/HCPCS: 36415; 80053; 80061; 82306; 83036; 85025